=== PATIENT | male | born 1950 ===

== ENCOUNTER → 2016-07-18 | Outpatient (REF) | LOC: ZLAB.WCH 16:28 | DX: Z01.89 Encounter for other specified special examinations (principal) ==

== ENCOUNTER 2021-09-24 08:13 | Emergency (ER) | payer MEDICARE, BC ==
[~2021-09-24] VITALS: Ht 182.9 cm; Wt 76.4 kg
[2021-09-24 08:24] VITALS: TEMP 98.2
[2021-09-24] MEDS ORDERED: NORCO 325 MG-51 TAB PO (09:06)
[2021-09-24 09:55] VITALS: BP 146/89; PULSE 85
== END 2021-09-24 09:48 | disposition home or self-care (01) ==
LOC: COL.ER 08:13
DX: S42.031A Displaced fracture of lateral end of right clavicle, initial encounter for closed fracture (principal); W19.XXXA Unspecified fall, initial encounter; Y93.K1 Activity, walking an animal
CPT/HCPCS: J2060; J2405; J3010